=== PATIENT | female | born 1995 | race Two or more races ===

== ENCOUNTER 2020-06-26 13:25 | Observation (INO) | payer MEDICAID ==
[~2020-06-26] VITALS: Ht 162.6 cm; Wt 97.1 kg
[2020-06-26 12:51] VITALS: BP 126/77
[2020-06-26] MEDS ORDERED: PREN-217 PO (13:32)
[2020-06-26] MEDS ORDERED: METF-960 PO (13:32)
[2020-06-26] MEDS ORDERED: INSU100V SQ (13:32)
[2020-06-26 14:21] LABS: GLUCOMETER DEV NAME(LOC) 4S.; GLUCOSE,POINT OF CARE 73 MG/DL (70-110)
== END 2020-06-26 16:34 | disposition home or self-care (01) ==
LOC: 4S 13:33
PROVIDERS: ADMIT Obstetrics & Gynecology; ATTEND Obstetrics & Gynecology
DX: O36.8130 Decreased fetal movements, third trimester, not applicable or unspecified (principal); O24.414 Gestational diabetes mellitus in pregnancy, insulin controlled; Z3A.31 31 weeks gestation of pregnancy
CPT/HCPCS: 59025; 76811; 96360; 96361; 99219